=== PATIENT | female | born 1980 | race Caucasian/White ===

== ENCOUNTER 2017-02-27 08:31 | Emergency (ER) | payer MEDICAID ==
[~2017-02-27] VITALS: Ht 162.6 cm; Wt 90.0 kg
[2017-02-27 10:07] LABS: UA SPECIFIC GRAVITY 1.015 (1.005-1.035); microscopic required? YES; urine erythrocyte 2+ (NEGATIVE)
[2017-02-27 12:56] VITALS: BP 128/71
== END 2017-02-27 12:57 | disposition home or self-care (01) ==
LOC: ED 08:31
PROVIDERS: Emergency Medicine
DX: R30.0 Dysuria (principal); R35.0 Frequency of micturition; R39.15 Urgency of urination; R11.2 Nausea with vomiting, unspecified; R09.81 Nasal congestion
CPT/HCPCS: Q0092

== ENCOUNTER 2017-03-08 21:46 | Emergency (ER) | payer MEDICAID ==
[2017-03-08 22:58] LABS: microscopic required? NO
[2017-03-08 23:07] LABS: BASOPHIL % 0.6 % (0-2); PLATELET COUNT 357 x10^3mcL (130-400); RED CELL DISTRIBUTION WIDTH 14.2 % (11.5-14.5)
[2017-03-08 23:10] LABS: urine erythrocyte NEGATIVE (NEGATIVE)
[2017-03-08 23:31] LABS: ALBUMIN 3.4 g/dL (3.4-5.0); ALKALINE PHOSPHATASE 104 U/L (46-116); ALT/SGPT 23 U/L (14-59); AMYLASE 59 U/L (25-115); AST/SGOT 17 U/L (15-37); BILIRUBIN TOTAL 0.2 mg/dL (0.20-1.00); CALCIUM 8.6 mg/dL (8.5-10.1); CARBON DIOXIDE 28.8 mmol/L (21-32); CHLORIDE SERUM 105 mmol/L (98-107); CREATININE SERUM 0.8 mg/dL (0.6-1.0); GFR1 > 60 mL/min; GLUCOSE SERUM 101 mg/dL (74-106); LIPASE 257 IU/L (73-393); POTASSIUM SERUM 3.7 mmol/L (3.5-5.1); SODIUM SERUM 143 mmol/L (136-145); TOTAL PROTEIN, SERUM 6.8 g/dL (6.4-8.2)
[2017-03-09 02:59] VITALS: BP 122/70
== END 2017-03-09 03:02 | disposition home or self-care (01) ==
LOC: ED 21:46
PROVIDERS: Emergency Medicine
DX: R10.13 Epigastric pain (principal); R10.12 Left upper quadrant pain; R10.32 Left lower quadrant pain; R11.2 Nausea with vomiting, unspecified
CPT/HCPCS: 83880; J1885; J2405; J7030

== ENCOUNTER 2017-09-25 18:46 | Emergency (ER) | payer MEDICAID ==
[2017-09-25 22:33] VITALS: BP 130/89
== END 2017-09-25 22:33 | disposition home or self-care (01) ==
LOC: ED 18:46
DX: M54.5 Low back pain (principal)

== ENCOUNTER 2018-09-19 13:17 | Emergency (ER) | payer MEDICAID ==
[~2018-09-19] VITALS: Ht 162.6 cm; Wt 92.7 kg
[2018-09-19 13:43] VITALS: BP 113/59; Ht 162.6 cm; Wt 92.7 kg
== END 2018-09-19 14:18 | disposition home or self-care (01) ==
LOC: ED 13:17
DX: J06.9 Acute upper respiratory infection, unspecified (principal); G89.29 Other chronic pain; Z98.890 Other specified postprocedural states